=== PATIENT | male | born 1975 | race Caucasian/White ===

== ENCOUNTER → 2021-05-25 02:33 | Outpatient (CLI) | payer BC, SELFPAY ==
[2021-05-25 16:36] LABS: SARS-CoV-2 RNA PCR Negative
== END ==
PROVIDERS: PCP Family Medicine; Visit Provider Family Medicine
DX: R05.9 Cough, unspecified (principal); R09.81 Nasal congestion; R53.83 Other fatigue; R09.89 Other specified symptoms and signs involving the circulatory and respiratory systems; Z20.822 Contact with and (suspected) exposure to COVID-19
CPT/HCPCS: C9803; U0003; U0005